=== PATIENT | male | born 1960 | race Caucasian/White ===

== ENCOUNTER 2024-08-13 00:05 | Emergency (ER) | payer OTHER | END 2024-08-13 01:13 | disposition home or self-care (01) | LOC: KA.ED 00:05 | DX: E11.649 Type 2 diabetes mellitus with hypoglycemia without coma (principal); Z79.82 Long term (current) use of aspirin; Z79.4 Long term (current) use of insulin; Z79.84 Long term (current) use of oral hypoglycemic drugs; Z79.899 Other long term (current) drug therapy | CPT/HCPCS: 82947; 99284 ==